=== PATIENT | female | born 1985 | race Two or more races ===

== ENCOUNTER 2021-03-24 19:31 | Observation (INO) | payer SELFPAY ==
[2016-06-01 13:07] VITALS: BP 132/81
[~2021-03-24] VITALS: Ht 165.1 cm; Wt 90.5 kg
[~2021-03-24 19:31] MED LIST: ACET-704 PO; ACET325T9 PO; CEPH500C PO; IBUP-1060 PO; PREN1TAB54 PO; TRAM-48 PO
[2021-03-24 20:38] LABS: BILIRUBIN,URINE NEGATIVE (NEG); CLARITY,URINE CLEAR; COLOR,URINE YELLOW; NITRITE,URINE NEGATIVE (NEG); PH,URINE 6.5 (<5.0-8.0); PROTEIN,URINE NEGATIVE (NEG-TRACE); UROBILINOGEN,URINE 0.2 mg/dL (0.2 mg/dL)
[2021-03-24 20:44] LABS: BACTERIA,URINE FEW /HPF (0-FEW); RBC,URINE 0 /HPF (0-2); WBC,URINE 0 /HPF (0-4)
== END 2021-03-24 21:10 | disposition home or self-care (01) ==
LOC: 3 SO LND 19:31
PROVIDERS: ADMIT Obstetrics & Gynecology; ATTEND Obstetrics & Gynecology
DX: O99.891 Other specified diseases and conditions complicating pregnancy (principal); M54.50 Low back pain, unspecified; R10.30 Lower abdominal pain, unspecified; Z3A.23 23 weeks gestation of pregnancy
CPT/HCPCS: 59025; 81001; G0378; G0379

== ENCOUNTER 2021-06-12 13:58 | Observation (INO) | payer SELFPAY ==
[2016-06-01 13:07] VITALS: BP 132/81
[2021-06-12] MEDS ORDERED: IV RINGERS,LACTATED 1000ML 1,000 ML IV PRN (14:45)
[2021-06-12 14:52] LABS: BILIRUBIN,URINE NEGATIVE (NEG); CLARITY,URINE CLEAR; COLOR,URINE YELLOW; NITRITE,URINE NEGATIVE (NEG); PH,URINE 7.5 (<5.0-8.0); PROTEIN,URINE NEGATIVE (NEG-TRACE); UROBILINOGEN,URINE 0.2 mg/dL (0.2 mg/dL)
[2021-06-12 14:58] LABS: BACTERIA,URINE MODERATE /HPF (0-FEW); RBC,URINE 0 /HPF (0-2)
== END 2021-06-12 16:00 | disposition home or self-care (01) ==
LOC: 3 SO LND 13:58
PROVIDERS: ADMIT Obstetrics & Gynecology; ATTEND Obstetrics & Gynecology
DX: O62.9 Abnormality of forces of labor, unspecified (principal); O26.893 Other specified pregnancy related conditions, third trimester; R10.2 Pelvic and perineal pain; Z3A.34 34 weeks gestation of pregnancy; Z79.899 Other long term (current) drug therapy
CPT/HCPCS: 59025; 81001; 87086; G0378; G0379